=== PATIENT | male | born 1990 | race Caucasian/White ===

== ENCOUNTER 2022-01-21 22:03 | Emergency (ER) | payer OTHER ==
[~2022-01-21] VITALS: Ht 177.8 cm; Wt 77.1 kg
[2022-01-21 22:12] VITALS: BP 129/90
--- NOTE | 2022-01-21 22:15 | NUR ---
TO LOBBY A/W BED AMBULATORY
--- NOTE | 2022-01-21 23:46 | NUR ---
PT TAKEN TO BED 1
--- NOTE | 2022-01-21 23:50 | NUR ---
RECEIVED IN BED 1 FOR WOUND CHECK ON HIS RT SHOULDER SEEN LAST 9.4
[2022-01-22] MEDS ORDERED: CEPH500C16 PO (01:26)
[2022-01-22] MEDS ORDERED: ACET-8386 PO (01:26)
[2022-01-22] MEDS ORDERED: IBUP-2213 PO (01:26)
[2022-01-22 01:30] VITALS: BP 129/90
--- NOTE | 2022-01-22 01:30 | NUR ---
Patient discharged with v/s stable. Written and verbal after care instructions given and explained. Patient alert, oriented and verbalized understanding of instructions. Ambulatory with steady gait. All questions addressed prior to discharge. ID band removed. Patient advised to follow up with PMD. Rx of KEFLEX, IBUPROFEN, AND HYDROCODONE given. Patient educated on indication of medication including possible reaction and side effects. Opportunity to ask questions provided and answered.
== END 2022-01-22 01:30 | disposition home or self-care (01) ==
LOC: MED 22:03
DX: S41.001A Unspecified open wound of right shoulder, initial encounter (principal); L08.9 Local infection of the skin and subcutaneous tissue, unspecified; Z98.890 Other specified postprocedural states; X58.XXXA Exposure to other specified factors, initial encounter; Y93.89 Activity, other specified; Y92.89 Other specified places as the place of occurrence of the external cause; Y99.8 Other external cause status
CPT/HCPCS: 99283